=== PATIENT | male | born 1965 | race Caucasian/White ===

== ENCOUNTER 2018-11-20 00:47 | Emergency (ER) | payer OTHER, SELFPAY ==
[2018-11-20] MEDS ORDERED: NA CHLORIDE 0.9% 500 ML ONE ×2 (01:44→02:44)
[2018-11-20 02:07] LABS: Absolute Lymphocytes (CBC) 1.1 K/uL (0.7-4.9); Absolute Monocytes 0.3 K/uL (0.1-1.3); Absolute Neutrophil 3.6 K/uL (1.8-8.0); Basophils % 0.8 % (0-1.3); Eosinophils % 5.5 % (0-4.4); Hematocrit 37.6 % (39.6-49.0); Lymphocytes % 20.5 % (15.3-44.8); MPV 10.8 fL (7.6-11.3)
[2018-11-20 02:25] LABS: Potassium 4.5 mmol/L (3.5-5.1)
[2018-11-20] MEDS ORDERED: INSULIN -REGULAR HUMAN 50 UNIT/0.5 ML ML ONE ×2 (02:44→04:57)
--- NOTE | 2018-11-20 04:36 | ER ---
Nurse's Notes [facility] Name: Gene Weller Age: 53 yrs Sex: Male : 1965 Arrival Date: 11/20/2018 Time: 01:04 Bed 2 Private MD: Diagnosis: Hyperglycemia, unspecified Presentation: 11/20 00:45 Presenting complaint: EMS states: "we were called because his dog accidentally bit his cc3 medical alert necklace. Patient's been forgetful since May and that he's having pain in the right shoulder blade". Transition of care: patient was not received from another setting of care. Onset of symptoms is unknown. Risk Assessment: Do you want to hurt yourself or someone else? Patient reports no desire to harm self or others. Initial Sepsis Screen: Does the patient meet any 2 criteria? No. Patient's initial sepsis screen is negative. Does the patient have a suspected source of infection? No. Patient's initial sepsis screen is negative. Care prior to arrival: None. 00:45 Method Of Arrival: EMS: [facility] cc3 00:45 Acuity: ALONA 3 cc3 Triage Assessment: 00:45 General: Appears in no apparent distress. comfortable, Behavior is calm, cooperative, cc3 appropriate for age. Pain: Complains of pain in right shoulder blade Pain currently is 1 out of 10 on a pain scale. Quality of pain is described as aching. EENT: No signs and/or symptoms were reported regarding the EENT system. Neuro: Level of Consciousness is awake, alert, obeys commands, Oriented to person, place, time, situation, Appropriate for age. Cardiovascular: Denies chest pain, Patient's skin is warm and dry. Respiratory: Airway is patent Respiratory effort is even, unlabored, Respiratory pattern is regular, symmetrical. GI: Abdomen is round obese. : No signs and/or symptoms were reported regarding the genitourinary system. Derm: No signs and/or symptoms reported regarding the dermatologic system. Musculoskeletal: Amputation of Other: right BKA with right prosthesis leg Range of motion: limited in right leg. Historical: - Allergies: 00:45 No Known Allergies; cc3 - Home Meds: 00:45 sertraline 100 mg oral tab 2 tabs once daily [Active]; atorvastatin 80 mg oral tab 1 cc3 tab once daily [Active]; metoprolol tartrate 25 mg Oral tab 1 tab once daily [Active]; diclofenac sodium 50 mg oral TbEC 1 tab 2 times per day [Active]; metformin 1,000 mg Oral TG24 1 tab 2 times per day [Active]; omeprazole 20 mg Oral cpDR 1 cap once daily [Active]; isosorbide mononitrate 30 mg Oral Tb24 1 tab once daily [Active]; levothyroxine 125 mcg tab 2 tabs once daily [Active]; lisinopril 5 mg Oral tab 1 tab once daily [Active]; cyanocobalamin (vitamin B-12) 1,000 mcg oral tab [Active]; gabapentin 300 mg oral cap 1 cap 3 times per day [Active]; aspirin 81 mg Oral chew 1 tab once daily [Active]; 00:45 Lantus 70 units AM, 70 units PM Sub-Q [Active]; cc3 - PMHx: 00:45 CVA; Diabetes - IDDM; Hypertension; gastrointestinal problems; cc3 - PSHx: 00:45 right BKA; cc3 - Immunization history:: Adult Immunizations unknown. - Social history:: Smoking status: Patient/guardian denies using tobacco, the patient reports quitting approximately 18 years ago. - Ebola Screening: : No symptoms or risks identified at this time. Screenin:45 Abuse screen: Denies threats or abuse. Denies injuries from another. Nutritional cc3 screening: No deficits noted. Tuberculosis screening: No symptoms or risk factors identified. Fall Risk Ambulatory Aid- Crutches/Cane/Walker (15 pts). Gait- Normal/Bed Rest/Wheelchair (0 pts) Mental Status- Oriented to own ability (0 pts). Assessment: 00:45 General: see triage assessment. cc3 01:30 Reassessment: Patient appears in no apparent distress at this time. Patient and/or cc3 family updated on plan of care and expected duration. Pain level reassessed. Patient is alert, oriented x 3, equal unlabored respirations, skin warm/dry/pink. 02:24 Reassessment: pt resting with eyes closed, resp even and unlabored. ak1 03:20 Reassessment: Patient appears in no apparent distress at this time. Patient and/or cc3 family updated on plan of care and expected duration. Pain level reassessed. Patient is alert, oriented x 3, equal unlabored respirations, skin warm/dry/pink. serum glucose taken and sent to laboratory. 04:14 Reassessment: Patient appears in no apparent distress at this time. Patient and/or cc3 family updated on plan of care and expected duration. Pain level reassessed. Patient is alert, oriented x 3, equal unlabored respirations, skin warm/dry/pink. Serum glucose result is now released with result of 528 mg/dL. 04:20 Reassessment: Dr. Do ordered for a fingerstick with result of 464 mg/dL, asked cc3 charge nurse Kathryn if needs to draw serum blood glucose again and she said no need. 05:00 Reassessment: Patient appears in no apparent distress at this time. Patient and/or cc3 family updated on plan of care and expected duration. Pain level reassessed. Patient is alert, oriented x 3, equal unlabored respirations, skin warm/dry/pink. Dr. Do discharged the patient home, no prescription given. IV cannula removed. Patient needs a ride home, called his brother named Maverick Weller who resides in [place] with mobile number [phone] but unfortunately did not answer the call and his voicebox is full and cannot accept new messages. 05:10 Reassessment: Patient gave a number of his aunt Areli Bain with mobile number [phone] and she answered but she said she will not be able to fetch the patient so she'll just call the patient's brother. 05:36 Reassessment: pt unable to find a ride home. Food Science Technician Jamila Foley notified and ak1 a taxi has been arranged for the patient. 05:44 Reassessment: Patient discharged with a taxi ride home and went out of ER vitally cc3 stable by wheelchair escorted by CUAUHTEMOC Fletcher. Patient denies pain at this time. Patient states feeling better. Patient states symptoms have improved. Vital Signs: 00:45 BP 142 / 81; Pulse 80; Resp 18 S; Temp 98.5(O); Pulse Ox 98% on R/A; Weight 69.4 kg cc3 (R); Height 6 ft. 3 in. (190.50 cm) (R); Pain 07/10; 01:30 BP 123 / 72; Pulse 78; Resp 18; Pulse Ox 96% on R/A; ak1 02:21 BP 135 / 72; Pulse 73; Resp 16; Temp 98.5; Pulse Ox 97% on R/A; Pain 0/10; ak1 03:27 BP 139 / 68; Pulse 75; Resp 17 S; Temp 98.3(O); Pulse Ox 97% on R/A; cc3 03:58 BP 142 / 78; Pulse 75; Resp 16; Pulse Ox 98% on R/A; ak1 04:30 BP 166 / 88; Pulse 73; Resp 16 S; Temp 98.3(O); Pulse Ox 97% on R/A; cc3 04:52 BP 156 / 76; Pulse 75; Resp 18 S; Temp 98(O); Pulse Ox 97% on R/A; cc3 00:45 Body Mass Index 19.12 (69.40 kg, 190.50 cm) cc3 ED Course: 00:45 Patient has correct armband on for positive identification. Placed in gown. Bed in low cc3 position. Call light in reach. Side rails up X2. aerospace quality engineer on. Pulse ox on. NIBP on. 00:45 Arm band placed on Patient notified of wait time. cc3 01:04 Patient arrived in ED. ds1 01:11 Jose Do MD is Attending Physician. gs 01:16 Aiyana Villela is Primary Nurse. cc3 01:21 Triage completed. cc3 01:40 Initial lab(s) drawn, by me, sent to lab. Inserted saline lock: 22 gauge in right hand, ak1 using aseptic technique. Blood collected. 02:26 Notified ED physician of a critical lab result(s). 730 glucose. ak1 04:55 No provider procedures requiring assistance completed. IV discontinued, intact, ak1 bleeding controlled, No redness/swelling at site. Pressure dressing applied. Administered Medications: 01:42 Drug: NS 0.9% 500 ml Route: IV; Rate: bolus; Site: right hand; ak1 02:15 Follow up: Response: No adverse reaction; IV Status: Completed infusion; IV Intake: cc3 500ml 02:24 Follow up: IV Status: Completed infusion; IV Intake: 500ml ak1 02:30 Drug: NS 0.9% 500 ml Route: IV; Rate: bolus; Site: right hand; cc3 03:10 Follow up: Response: No adverse reaction; IV Status: Completed infusion; IV Intake: cc3 500ml 02:32 Drug: Insulin Regular Human 10 units {Co-Signature: cc3 (Aiyana Cordel).} Route: IVP; ak1 Site: right hand; 02:59 Follow up: Response: No adverse reaction; Blood sugar is unchanged cc3 04:50 Drug: Insulin Regular Human 10 units {Co-Signature: cc3 (Aiyana Cordel).} Route: ak1 Sub-Q; Site: left upper arm; 04:55 Follow up: Response: No adverse reaction; Medication administered at discharge. ak1 Point of Care Testing: Blood Glucose: 04:20 Blood Glucose: 464 mg/dL; cc3 02:59 >500 mg/dL cc3 Ranges: Intake: 02:15 IV: 500ml; Total: 500ml. cc3 02:24 IV: 500ml; Total: 1000ml. ak1 03:10 IV: 500ml; Total: 1500ml. cc3 Outcome: 04:36 Discharge ordered by . 04:55 Condition: improved ak1 04:55 Discharge instructions given to patient, Instructed on discharge instructions, follow up and referral plans. Demonstrated understanding of instructions, follow-up care. 05:37 Discharged to home via wheelchair, via taxi ak1 05:44 Patient left the ED. cc3 Signatures: Pilar Akers ds1 Justine Sunshine, RN RN ak1 Jose Do MD MD [facility], Aiyana cc3 Aiyana Cordjose cc3
--- NOTE | 2018-11-20 04:36 | EDPHYS ---
Physician Documentation [facility] Name: Gene Weller Age: 53 yrs Sex: Male : 1965 Arrival Date: 11/20/2018 Time: 01:04 Bed 2 Private MD: ED Physician Jose Do HPI: 11/20 04:24 This 53 yrs old Male presents to ER via EMS with complaints of High Blood gs Sugar. 04:24 that was potentially precipitated by forgetting medications. Onset: The gs symptoms/episode began/occurred today. Associated signs and symptoms: Pertinent negatives: constipation, decreased urine output, diaphoresis, nausea. Current symptoms: In the emergency department the patient's symptoms are unchanged from the initial presentation. The patient has experienced similar episodes in the past, several times. Historical: - Allergies: 00:45 No Known Allergies; cc3 - Home Meds: 00:45 sertraline 100 mg oral tab 2 tabs once daily [Active]; atorvastatin 80 mg oral tab 1 cc3 tab once daily [Active]; metoprolol tartrate 25 mg Oral tab 1 tab once daily [Active]; diclofenac sodium 50 mg oral TbEC 1 tab 2 times per day [Active]; metformin 1,000 mg Oral TG24 1 tab 2 times per day [Active]; omeprazole 20 mg Oral cpDR 1 cap once daily [Active]; isosorbide mononitrate 30 mg Oral Tb24 1 tab once daily [Active]; levothyroxine 125 mcg tab 2 tabs once daily [Active]; lisinopril 5 mg Oral tab 1 tab once daily [Active]; cyanocobalamin (vitamin B-12) 1,000 mcg oral tab [Active]; gabapentin 300 mg oral cap 1 cap 3 times per day [Active]; aspirin 81 mg Oral chew 1 tab once daily [Active]; 00:45 Lantus 70 units AM, 70 units PM Sub-Q [Active]; cc3 - PMHx: 00:45 CVA; Diabetes - IDDM; Hypertension; gastrointestinal problems; cc3 - PSHx: 00:45 right BKA; cc3 - Immunization history:: Adult Immunizations unknown. - Social history:: Smoking status: Patient/guardian denies using tobacco, the patient reports quitting approximately 18 years ago. - Ebola Screening: : No symptoms or risks identified at this time. ROS: 04:24 All other systems are negative. gs Exam: 04:24 Head/Face: Normocephalic, atraumatic. Eyes: Pupils equal round and reactive to light, gs extra-ocular motions intact. Lids and lashes normal. Conjunctiva and sclera are non-icteric and not injected. Cornea within normal limits. Periorbital areas with no swelling, redness, or edema. ENT: Nares patent. No nasal discharge, no septal abnormalities noted. Tympanic membranes are normal and external auditory canals are clear. Oropharynx with no redness, swelling, or masses, exudates, or evidence of obstruction, uvula midline. Mucous membranes moist. Neck: Trachea midline, no thyromegaly or masses palpated, and no cervical lymphadenopathy. Supple, full range of motion without nuchal rigidity, or vertebral point tenderness. No Meningismus. Chest/axilla: Normal chest wall appearance and motion. Nontender with no deformity. No lesions are appreciated. Cardiovascular: Regular rate and rhythm with a normal S1 and S2. No gallops, murmurs, or rubs. Normal PMI, no JVD. No pulse deficits. Respiratory: Lungs have equal breath sounds bilaterally, clear to auscultation and percussion. No rales, rhonchi or wheezes noted. No increased work of breathing, no retractions or nasal flaring. Abdomen/GI: Soft, non-tender, with normal bowel sounds. No distension or tympany. No guarding or rebound. No evidence of tenderness throughout. Back: No spinal tenderness. No costovertebral tenderness. Full range of motion. Skin: Warm, dry with normal turgor. Normal color with no rashes, no lesions, and no evidence of cellulitis. 04:24 Constitutional: The patient appears alert, awake. 04:24 Musculoskeletal/extremity: Perfusion: the patient is normally perfused throughout, amp right leg. 04:24 Neuro: Exam negative for acute changes. Vital Signs: 00:45 BP 142 / 81; Pulse 80; Resp 18 S; Temp 98.5(O); Pulse Ox 98% on R/A; Weight 69.4 kg cc3 (R); Height 6 ft. 3 in. (190.50 cm) (R); Pain 110; 01:30 BP 123 / 72; Pulse 78; Resp 18; Pulse Ox 96% on R/A; ak1 02:21 BP 135 / 72; Pulse 73; Resp 16; Temp 98.5; Pulse Ox 97% on R/A; Pain 0/10; ak1 03:27 BP 139 / 68; Pulse 75; Resp 17 S; Temp 98.3(O); Pulse Ox 97% on R/A; cc3 03:58 BP 142 / 78; Pulse 75; Resp 16; Pulse Ox 98% on R/A; ak1 04:30 BP 166 / 88; Pulse 73; Resp 16 S; Temp 98.3(O); Pulse Ox 97% on R/A; cc3 04:52 BP 156 / 76; Pulse 75; Resp 18 S; Temp 98(O); Pulse Ox 97% on R/A; cc3 00:45 Body Mass Index 19.12 (69.40 kg, 190.50 cm) cc3 MDM: 01:24 Patient medically screened. 04:24 Differential diagnosis: hyperglycemia. Data reviewed: vital signs, nurses notes, lab gs test result(s). Response to treatment: the patient's symptoms have markedly improved after treatment, and as a result, I will discharge patient. 04:36 ED course: encouraged pt to take his meds when he gets home. 11/20 01:25 Order name: CBC with Diff; Complete Time: 02:27 gs 11/20 01:25 Order name: Basic Metabolic Panel; Complete Time: 02:27 gs 11/20 03:02 Order name: Glucose; Complete Time: 04:24 cc3 11/20 03:50 Order name: Fingerstick Glucose; Complete Time: 04:21 gs Administered Medications: 01:42 Drug: NS 0.9% 500 ml Route: IV; Rate: bolus; Site: right hand; ak1 02:15 Follow up: Response: No adverse reaction; IV Status: Completed infusion; IV Intake: cc3 500ml 02:24 Follow up: IV Status: Completed infusion; IV Intake: 500ml ak1 02:30 Drug: NS 0.9% 500 ml Route: IV; Rate: bolus; Site: right hand; cc3 03:10 Follow up: Response: No adverse reaction; IV Status: Completed infusion; IV Intake: cc3 500ml 02:32 Drug: Insulin Regular Human 10 units {Co-Signature: cc3 (Aiyana Villela).} Route: IVP; ak1 Site: right hand; 02:59 Follow up: Response: No adverse reaction; Blood sugar is unchanged cc3 04:50 Drug: Insulin Regular Human 10 units {Co-Signature: nilson3 (Aiyana Villela).} Route: ak1 Sub-Q; Site: left upper arm; 04:55 Follow up: Response: No adverse reaction; Medication administered at discharge. ak1 Point of Care Testing: Blood Glucose: 04:20 Blood Glucose: 464 mg/dL; cc3 02:59 >500 mg/dL cc3 Ranges: Critical Glucose Levels:Adult <50 mg/dl or >400 mg/dl <40 mg/dl or >180 mg/dl Disposition: 11/20/18 04:36 Discharged to Home. Impression: Hyperglycemia, unspecified. - Condition is Stable. - Discharge Instructions: Hyperglycemia. - Medication Reconciliation Form, Thank You Letter, Antibiotic Education, Prescription Opioid Use form. - Follow up: Private Physician; When: 2 - 3 days; Reason: Re-evaluation by your physician. Signatures: Dispatcher [employer] Justine Alaniz RN RN ak1 Jose Do MD MD gs Cordel, Aiyana devine3 Aiyana Villela cc3 Corrections: (The following items were deleted from the chart) 05:44 04:36 11/20/2018 04:36 Discharged to Home. Impression: Hyperglycemia, unspecified. cc3 Condition is Stable. Forms are Medication Reconciliation Form, Thank You Letter, Antibiotic Education, Prescription Opioid Use. Follow up: Private Physician; When: 2 - 3 days; Reason: Re-evaluation by your physician. gs
== END 2018-11-20 05:44 | disposition home or self-care (01) ==
LOC: ER 00:47
DX: E11.65 Type 2 diabetes mellitus with hyperglycemia (principal); Z79.4 Long term (current) use of insulin
CPT/HCPCS: 36415; 80048; 82947; 82962; 85025; 96361; 96372; 96374; 99284